=== PATIENT | male | born 1980 | race Two or more races ===

== ENCOUNTER 2022-09-30 18:22 | Emergency (ER) | payer OTHER ==
[~2022-09-30] VITALS: Ht 180.3 cm; Wt 95.3 kg
[2022-09-30] MEDS ORDERED: LIPITOR20 MG (18:39)
[2022-09-30] MEDS ORDERED: COZAAR25 MG (18:40)
[2022-09-30] MEDS ORDERED: NORVASC2.5 MG (18:40)
== END 2022-09-30 22:44 | disposition home or self-care (01) ==
LOC: ER 18:22
DX: R42 Dizziness and giddiness (principal); I10 Essential (primary) hypertension; Z20.822 Contact with and (suspected) exposure to COVID-19

== ENCOUNTER 2023-09-13 21:15 | Emergency (ER) | payer OTHER ==
[~2023-09-13] VITALS: Ht 180.3 cm; Wt 99.8 kg
[~2023-09-13 21:15] MED LIST: COZAAR25 MG; LIPITOR20 MG; NORVASC2.5 MG
[2023-09-13] MEDS ORDERED: CELEXA10 MG (21:29)
[2023-09-13 21:51] LABS: HEMATOCRIT 46.3 % (39.0-48.0); MEAN CORPUSCULAR HEMOGLOBIN 31.1 pg (27.00-32.0); MEAN CORPUSCULAR HGB CONC 34.6 g/dl (32.0-36.0); PLATELET COUNT 265 K/uL (150-450); RED BLOOD COUNT 5.14 M/uL (4.00-6.00); RED CELL DISTRIBUTION WIDTH 13.1 % (11.5-14.5)
== END 2023-09-13 22:37 | disposition home or self-care (01) ==
LOC: ER 21:15
PROVIDERS: General Practice
DX: M25.522 Pain in left elbow (principal); I10 Essential (primary) hypertension

== ENCOUNTER 2024-03-21 20:13 | Emergency (ER) | payer OTHER ==
[~2024-03-21] VITALS: Ht 180.3 cm; Wt 104.8 kg
[~2024-03-21 20:13] MED LIST changes: +CELEXA10 MG
[2024-03-21] MEDS ORDERED: KETOROLAC TROMETHAMINE 30 MG VIAL IM ONE (21:15)
== END 2024-03-21 22:32 | disposition home or self-care (01) ==
LOC: ER 20:14
DX: K59.00 Constipation, unspecified (principal)
CPT/HCPCS: 74240; 96372; 99283; J1885

== ENCOUNTER 2025-05-08 10:02 | Outpatient (CLI) | payer OTHER | END 2025-05-08 10:04 | disposition home or self-care (01) | LOC: SONOGRAMA 10:02 | PROVIDERS: ATTEND Pathology Anatomic Pathology & Clinical Pathology | DX: C73 Malignant neoplasm of thyroid gland (principal); E04.2 Nontoxic multinodular goiter ==